=== PATIENT | female | born 1945 | race Caucasian/White ===

== ENCOUNTER 2016-06-29 06:34 | Emergency (ER) | payer MEDICARE, OTHER ==
[~2016-06-29] VITALS: Ht 170.2 cm; Wt 135.4 kg
[~2016-06-29 06:34] MED LIST: ACET-1890 PO; ALBU8.5H4 IH; AMOX1TAB11 PO; ASPI-628 PO; BUDE90AE IH; CALC-56 PO; CERA453C2 TP; CETI-263 PO; CHOL100043 PO; CHRO400T10 PO; CLOB50SO TP; DOCU50LI PO; ECON15CR10 TOP; EMOL226L TP; FURO-128 PO; INSU100C8 SUBQ; KETO120S3 TP; KTC2C15 TP; LEVO88TA4 PO; METH750T3 PO; MONT10TA23 PO; SPIR50TA2 PO; TRAZ-115 PO; TROL35.4 TP; VALA100026 PO; [UNRECOGNIZED DRUG - CODE] PO; vit b complex PO; vitamin a PO
[2016-06-29 06:36] VITALS: BP 133/57; PULSE 79; RESP 16; O2SAT 99
--- NOTE | 2016-06-29 06:47 | ED.REPORT ---
HPI-Chest Pain 40 and Over Date of Service Jun 29, 2016 ED Provider: Maxime Morejon MD History of Present Illness: There is no template for palpitations, so this CP template was used This is a 71 year old female with a history of atrial fibrillation, colon cancer , liver cirrhosis, iron deficiency anemia, DM, hyperlipidemia, and sleep apnea presenting to the emergency department due to sudden onset diffuse chest pain that began 10 hours ago while sitting in a recliner. Described as a "tight band across," and is aching in character, denies sharp pain. Associated symptoms include bilateral lower extremity swelling. She reports similar presentation with an episode of atrial fibrillation she experienced a few years ago after hemicolectomy. Denies changes in breathing, diaphoresis, nausea, vomiting , palpitations, dizziness, or lightheadedness at this time. Denies recent medication changes at this time. Nursing Notes Stated Complaint: MILD AFIB Chief Complaint: Dysrhythmia/Cardiac Nursing Notes Reviewed: Yes (Smartzer, Rubysophic not reconciled) Allergies: Coded Allergies: diltiazem (Verified Allergy, Severe, Shortness of Breath, 01/04/14) erythromycin base (Verified Allergy, Unknown, 01/04/14) adhesive tape (Verified Adverse Reaction, Severe, rash, 06/29/16) esomeprazole (Verified Adverse Reaction, Intermediate, nausea, 06/29/16) lisinopril (Verified Adverse Reaction, Intermediate, vomiting, 06/29/16) nitrofurantoin (Verified Adverse Reaction, Intermediate, vomiting, 06/29/16 ) omeprazole (Verified Adverse Reaction, Intermediate, nausea, 06/29/16) pramipexole (Verified Adverse Reaction, Intermediate, restlessness, ) Scheduled ([vit b complex]) 1 TAB PO DAILY ([vitamin a]) 5,000 UNITS PO DAILY Amoxicillin/Clav K 500-125 mg (Augmentin 500) 1 Tab Tab 1 TABLET PO BID Aspirin (Aspir 81) 81 Mg Tablet.dr 81 MG PO DAILY Budesonide (Pulmicort Flexhaler) 1 Puff/90 Mcg Aerp 2 PUFF IH BID Cetirizine HCl (Cetirizine HCl) 10 Mg Tablet 10 MG PO BID Cholecalciferol (Vitamin D3) (Vitamin D) 1,000 Unit Tablet 1,000 UNIT PO DAILY Chromium Amino Acid Chelate (Chromium) 400 Mcg Tablet 200 MCG PO DAILY Clobetasol Propionate (Clobetasol Propionate) 50 Ml Solution 1 ML TP DAILY Econazole Nitrate (Econazole Nitrate) 15 Gm Cream..g. 1 APPL TOP BID Furosemide (Lasix) 40 Mg Tablet 40-80 MG PO DAILY Guaifenesin/Pseudoephedrne ER (Mucinex D ER) 1 Each Tab.er.12h 1 TABLET PO DAILY Insulin Aspart (NovoLOG U100 Insulin Vial) 100 U/Ml U 40-50 UNIT SUBQ PRN Levothyroxine (Levothyroxine) 88 Mcg Tablet 88 MCG PO DAILY Montelukast (Montelukast) 10 Mg Tablet 10 MG PO HS Spironolactone (Spironolactone) 50 Mg Tablet 50 MG PO BIDF Trazodone (Trazodone) 50 Mg Tablet 25 MG PO HS PRN Scheduled PRN Acetaminophen (Tylenol) 325 Mg Tablet 325 MG PO PRN PRN PRN For Pain Albuterol HFA (Albuterol HFA) 8.5 Gm Hfa.aer.ad 2 PUFF IH Q4-6HRS PRN PRN PRN For Wheezing Calcium/Magnesium (Calcium with Magnesium Tab) 1 Each Tablet 1 EACH PO DAILY PRN PRN 1000mg/500mg Docusate Sodium (Docusate Sodium) 100 Mg/10 Ml Liquid 100 MG PO PRN PRN PRN For Constipation Methocarbamol (Methocarbamol) 750 Mg Tablet 750 MG PO BID PRN PRN PRN For Spasm Trolamine Salicylate/Aloe Vera (Aspercreme 10% Cream) 35.4 Gm Cream..g. 35.4 GM TP prn PRN PRN For Pain Valacyclovir (Valacyclovir) 1,000 Mg Tablet 1,000 MG PO PRN cold sores Miscellaneous Medications Ceramides 1,3,6-11 (Cerave) 453 Gm Cream..g. 453 GM TP Emollient Combination No.40 (Cetaphil) 226 Gm Lotion 226 GM TP Ketoconazole (Ketoconazole) 120 Ml Shampoo 120 ML TP Ketoconazole (Ketoconazole) 15 Gm Cream..g. 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, complicated by portal vein thrombosis History of iron deficiency and anemia Diabetes on insulin Hyperlipidemia history of sleep apnea history of atrial fibrillation Asthma Hypothyroidism Past Surgical History Right hemicolectomy for colon cancer Bilateral carpal tunnel syndrome Exploratory abdominal surgery Nephrectomy and hysterectomy Tonsillectomy Smoking History Never Smoker Social History Alcohol Use: Denies alcohol use Drug Use: Denies drug use Review of Systems Constitutional: Denies: Chills, Fever Cardiovascular: Reports: Chest pain GI: Denies: Abdominal pain, Constipation, Diarrhea, Nausea, Vomiting Musculoskeletal: Reports: Extremity swelling, Denies: Back pain Skin: Denies Diaphoresis Neurologic: Denies: Change LOC, Headache, Lightheaded, Numbness Complete sys rev & neg: except as marked. Physical Exam Initial Vital Signs Vital Signs (First) Date Time Temp Pulse Resp B/P Pulse Ox O2 Delivery O2 Flow Rate FiO2 06/29/16 06:36 36.3 79 16 133/57 99 Room Air 06/29/16 10:25 2 Initial VS: Reviewed, Vital signs normal Head / Eyes: Atraumatic, Normocephalic, PERRL ENT: Mucous membranes moist, Conjunctiva normal, No scleral icterus Neck: Supple, Non-tender, Full range of motion Extremities: Vascular intact, Neuro intact, No tenderness Skin: Warm, Dry, No cyanosis Neurologic: Alert, Oriented, Nonfocal Psychiatric: Mood/affect normal, Behavior normal, Normal thought content General/Constitutional: Awake, Alert Respiratory / Chest: Breath sounds NL, Breath sounds = bilat, No respiratory distress, No rales, No rhonchi, No wheezing, No stridor, No chest tenderness Cardiovascular: Heart rate NL, Regular rhythm, Heart sounds NL, No gallop, No murmurs, No rubs Lower Ext Edema: Positive: Bilateral 1+ Abdomen: Soft, Non-tender, McBurney's non-tender, No guarding, No rebound, BS normoactive, No distention, No hernia, No palpable mass Interpretation & Diagnostics Lab Results Interpretation Result Diagram: 06/29/16 0650 06/29/16 0650 Test 06/29/16 06:50 06/29/16 10:48 White Blood Count 3.8th/mm3 (3.8-10.1) Red Blood Count 4.01mil/mm3 (3.90-5.20) Hemoglobin 11.1g/dL (12.0-15.6) Hematocrit 32.2% (35.0-46.0) Mean Corpuscular Volume 80.3fL (81-100) Mean Corpuscular Hemoglobin 27.7pg (27.0-35.0) Mean Corpuscular Hemoglobin Concent 34.5% (32.0-37.0) Red Cell Distribution Width 15.8% (12.3-15.4) Platelet Count 132bil/L (150-400) Neutrophils (%) (Auto) 51.2% (40-74) Lymphocytes (%) (Auto) 30.0% (14-46) Monocytes (%) (Auto) 13.3% (4-12) Eosinophils (%) (Auto) 4.7% (0-5) Basophils (%) (Auto) 0.8% (0-3) Prothrombin Time 11.3sec (8.1-12.5) Prothromb Time International Ratio 1.05ratio Sodium Level 137mEq/L (134-144) Potassium Level 3.9mEq/L (3.5-5.2) Chloride Level 100mEq/L (97-108) Carbon Dioxide Level 20mmol/L (18-29) Blood Urea Nitrogen 18mg/dL (8-27) Creatinine 0.87mg/dL (0.57-1.00) Estimat Glomerular Filtration Rate 91mL/min (>59) Glucose Level 134mg/dL (60-99) Calcium Level 9.4mg/dL (8.5-10.1) Magnesium Level 1.8mg/dL (1.6-2.6) Total Bilirubin 1.8mg/dL (0.0-1.2) Aspartate Amino Transf (AST/SGOT) 46U/L (0-50) Alanine Aminotransferase (ALT/SGPT) 23U/L (0-32) Alkaline Phosphatase 82U/L (25-165) Troponin T 0.010ug/L (0.0-0.011) Total Protein 7.0g/dL (6.4-8.4) Albumin 3.5g/dL (3.4-5.0) Hold Lopez Top Tube Received (Received) Hold Urine Received (Received) Lab Results Interpretation: CBC mild anemia CMP normal Troponin negative-symptoms greater than 16 hours ago ECG Interpretation ECG Interpretation: NSR at rate of 83 Time: 07:22 Interpreted by: ED physician X-Ray Chest Interpretation Chest Xray Interpretation: IMPRESSION: No acute cardiopulmonary disease. Dictated by: Eder Clifton M.D. on 06/29/2016 at 9:06 Approved by: Eder Clifton M.D. on 06/29/2016 at 9:07 Re-Eval/Medical Decision Med Decision/Clinical Course This is a 71-year-old female who presents complaining that she had an episode of atrial fibrillation last night, and that she feels that her sodium was low and she is retaining some water. The patient arrives dyspneic and has significant dyspnea on exertion-states this is completely at baseline. He is huffing and puffing with exertion, but reiterates mass this is her baseline breathing and respiratory status and there has been no change. However last night at 10:00 or so she had a one-hour episode of chest discomfort, that she thinks is identical to what she had with the episode of post operative atrial fibrillation when she had surgery for colon cancer. She also feels that her leg slightly more edematous and she feels like she does when she builds up a little extra fluid. On exam, the patient is initially dyspneic with exertion, but settles down-but she is completely consistent that this is her baseline and has been for a number of months. She has been followed by cardiology, she has had a CT in September recent negative for PE, and it is not clear that a definitive cause for her level of dyspnea has been identified-again the patient reiterates repeatedly that it is her baseline. Is not febrile, she is not diaphoretic, she does not appear toxic. Patient's labs and chest x-ray are unremarkable. She is not in atrial fibrillation here. The patient's symptoms are atypical for cardiac chest pain, but her troponin is negative with greater than 16 hours. She has just been worked up with a CT angiogram recent months, and does not have speech is specific for PE, not significant indication to repeat this. The patient's big concern was the atrial fibrillation-and this is not evident. Some not funny" the patient requires admission. Although she is dyspneic on exertion she repeatedly each and every time I question her she indicates that (baseline for her breathing with no interval change. Precautions reviewed. Patient is discharged in stable condition Source of Hx: Old records Differential Diagnosis: Positive: Chest pain, acute, Negative: Dysrhythmia, Esophageal rupture, Gun shot wound chest, Hypertroph cardiomyopathy, Pneumonia, Pneumothorax, Pulmonary edema, Pulmonary embolism, Rib fracture, Stab wound chest Counseled Regarding: Diagnosis, Lab results, Need for follow-up Discharge & Departure Primary Impression: Chest pain Chest pain type: unspecified Qualified Code: R07.9 - Chest pain, unspecified Disposition: Home Discharge Condition All VS Reviewed: Yes Condition: Stable Additional Instructions: 1.A dangerous cause of the chest discomfort you experienced last night was not identified. 2.You are not in atrial fibrillation here - you are in a normal sinus rhythm. 3. Your blood tests were normal - including your troponin (heart test), and your sodium 4. No abnormalities were appreciated on your Xray 5. Given you describe an increase in edema, increase your furosemide as discussed for the next [address] Polk's office tomorrow to schedule a follow up appointment 7. Return if new or worsening symptoms Referrals: Mo Polk MD (PCP) Scribe Attestation Portions of this note were transcribed by Cody Persaud. I, Dr. Morejon personally performed the history, physical exam and medical decision-making; I reviewed and confirmed the accuracy of the information in the transcribed note. Signed by: Cody Persaud. 06/29/2016, 15:00. Maxime Morejon MD Jun 29, 2016 06:47 CODY PERSAUD Jun 29, 2016 06:50
[2016-06-29 07:14] LABS: BASOPHILS % (AUTO) 0.8 % (0-3); EOSINOPHILS % (AUTO) 4.7 % (0-5); MONOCYTES % (AUTO) 13.3 % (4-12); Mean Corpuscular Hemoglobin 27.7 pg (27.0-35.0); Mean Corpuscular Volume 80.3 fL (81-100); NEUTROPHILS % (AUTO) 51.2 % (40-74); Platelet Count 132 bil/L (150-400)
[2016-06-29 07:28] LABS: INR 1.05 ratio
[2016-06-29 07:35] LABS: TROPONIN T 0.01 ug/L (0.0-0.011)
[2016-06-29 07:37] VITALS: BP 143/71; PULSE 84; RESP 14; O2SAT 98
[2016-06-29 07:46] LABS: Magnesium 1.8 mg/dL (1.6-2.6)
--- NOTE | 2016-06-29 09:09 | DRSVH ---
PROCEDURE: X-RAY CHEST ONE VIEW, PORTABLE ([id number]) INDICATIONS: Dysrrhythmia TECHNIQUE: One view of the chest was acquired. COMPARISON: [facility], CT, CT CHEST ABD PELVIS W CON, 07/13/2015, 11:38. [facility], CT, CT ANGIO CHEST PE, 02/21/2016, 15:31. [facility], CR, CHEST 1VW (PORTABLE) , 01/04/2014, 17:48. FINDINGS: Surgical changes and devices: None. Lungs and pleura: No pleural effusions or pneumothorax. Lungs are clear. Mediastinum: Mediastinal contours appear normal. Heart size is normal. Bones and chest wall: No suspicious bony lesions. Overlying soft tissues appear unremarkable. IMPRESSION: No acute cardiopulmonary disease. Dictated by: Eder Clifton M.D. on 06/29/2016 at 9:06 Approved by: Eder Clifton M.D. on 06/29/2016 at 9:07
[2016-06-29 10:25] VITALS: BP 171/63; PULSE 99; RESP 20; O2SAT 97
[2016-06-29 12:30] VITALS: BP 137/61; PULSE 90; RESP 23; O2SAT 96
[2016-06-29 13:57] VITALS: BP 144/57; PULSE 87; RESP 20; O2SAT 98
[2016-06-29 14:10] VITALS: BP 144/57; PULSE 87; RESP 20; O2SAT 98
[2016-07-30] MEDS ORDERED: OMEG1CAP25 PO (14:46)
== END 2016-06-29 14:11 | disposition home or self-care (01) ==
LOC: SED 06:34
DX: R07.89 Other chest pain (principal); M79.89 Other specified soft tissue disorders; J45.909 Unspecified asthma, uncomplicated; I48.91 Unspecified atrial fibrillation; E03.9 Hypothyroidism, unspecified; E78.5 Hyperlipidemia, unspecified; Z79.82 Long term (current) use of aspirin; Z79.4 Long term (current) use of insulin; Z88.1 Allergy status to other antibiotic agents; Z88.5 Allergy status to narcotic agent; Z88.8 Allergy status to other drugs, medicaments and biological substances